=== PATIENT | female | born 2000 | race Caucasian/White ===

== ENCOUNTER 2021-09-14 10:09 | Emergency (ER) | payer OTHER ==
[~2021-09-14 10:09] MED LIST: ALBUTEROL2.5 MG/3 M INH; AZITHROMYCIN500 MG PO; IBUPROFEN600 MG PO; OMNICEF 300 MG300 MG PO; PREDNISONE 20 M20 MG PO; ZOFRAN4 MG PO; ZYRTEC10 MG PO
[2021-09-14 11:13] LABS: HEMOGLOBIN 14.8 gm/dl (12.3-15.3); RED BLOOD COUNT 4.25 M/UL (4.00-5.10); WHITE BLOOD COUNT 6.5 K/UL (4.5-11.0)
[2021-09-14 11:14] LABS: BUN/CREATININE RATIO 19 (0-10)
[2021-09-14] MEDS ORDERED: PREDNISONE 20 M20 MG PO (11:31)
== END 2021-09-14 11:35 | disposition home or self-care (01) ==
LOC: ER1 10:09
PROVIDERS: Emergency Medicine
DX: L50.9 Urticaria, unspecified (principal)
CPT/HCPCS: 80048; 81001; 85025; 99283